=== PATIENT | male | born 1965 | race Caucasian/White ===

== ENCOUNTER 2017-12-19 16:13 | Emergency (ER) | payer MEDICARE, MEDICAID ==
[~2017-12-19] VITALS: Ht 177.8 cm; Wt 136.1 kg
[~2017-12-19 16:13] MED LIST: CITRACAL ULTRAD1 TA1 PO; DAYPRO600 M1 PO; LEVOTHYROXINE0.05 MG PO; MAG-OX 400400 MG PO; METFORMIN HCL500 MG PO; MULTIVITAMIN1 SGL PO; NEOMYCIN500 MG PO; OYSTER CAL 500500 MG PO; POTASSIUM20 MEQ PO; PROPRANOLOL10 MG PO; ROBAXIN750 MG PO; THIAMINE HCL100 MG PO; VICODIN 500 MG-1 TAB PO; VITAMIN E100 I1 PO
[2017-12-19 16:37] LABS: BASO # 0.1 10*3/uL (0.0-0.1); BASO % 0.8 % (0.0-1.0); EOS # 0.2 10*3/uL (0.0-0.4); EOS % 2.4 % (1.0-4.0); HEMATOCRIT 40.6 % (42.0-52.0); LYMPH % 31.9 % (27.0-41.0); MEAN CELL VOLUME 92.9 fl (80.0-94.0); MEAN CORPUSCULAR HGB CONC 34.5 g/dl (33.0-37.0); MEAN PLATELET VOLUME 12.9 fl (9.6-12.3); MONO # 0.6 10*3/uL (0.1-1.0); MONO % 9.3 % (3.0-9.0); NEUT # 3.4 10*3/uL (2.3-7.9); NEUT % 54.6 % (47.0-73.0); PLATELET COUNT AUTOMATED 236 10*3/uL (130-400); RED BLOOD COUNT 4.37 10*6/uL (4.50-5.90); RED CELL DISTRI WIDTH 12.4 % (0-14.5); WHITE BLOOD COUNT 6.3 10*3/uL (4.8-10.8)
[2017-12-19] MEDS ORDERED: KEFLEX500 M1 PO (17:04)
[2017-12-19] MEDS ORDERED: CHLORZOXAZONE500 M2 PO (17:04)
[2017-12-19] MEDS ORDERED: NAPROSYN500 MG PO (17:04)
[2017-12-19 17:14] LABS: ACT PARTIAL THROMBO TIME 21.8 SECONDS (20.8-31.5); INTERNATIONAL NORM RATIO 1.1 (2.0-3.5)
[2017-12-19 17:18] LABS: ALBUMIN 3.6 gm/dl (3.1-4.5); ALKALINE PHOSPHATASE 103 U/L (45-117); BUN 18 mg/dl (7-24); CHLORIDE 109 mmol/L (98-107); CREATININE 0.86 mg/dL (0.70-1.30); POTASSIUM 4.1 mmol/L (3.5-5.1); SGOT/AST 53 IU/L (3-35); SGPT/ALT 47 U/L (12-78); SODIUM 144 mmol/L (136-145); TOTAL PROTEIN 6.9 gm/dL (6.4-8.2)
[2017-12-19 17:25] LABS: ETHYL ALCOHOL < 3.0 mg/dl (<3)
== END 2017-12-19 18:16 | disposition home or self-care (01) ==
LOC: ED 16:13
PROVIDERS: Nurse Practitioner Family
DX: S22.32XA Fracture of one rib, left side, initial encounter for closed fracture (principal); S11.91XA Laceration without foreign body of unspecified part of neck, initial encounter; T14.8XXA Other injury of unspecified body region, initial encounter; Z79.899 Other long term (current) drug therapy; V86.59XA Driver of other special all-terrain or other off-road motor vehicle injured in nontraffic accident, initial encounter; Y93.I9 Activity, other involving external motion; Y92.828 Other wilderness area as the place of occurrence of the external cause; Y99.8 Other external cause status

== ENCOUNTER 2020-02-24 10:06 | Inpatient (IN) | payer OTHER ==
[~2020-02-24] VITALS: Ht 185.4 cm; Wt 127.6 kg
[~2020-02-24 10:06] MED LIST changes: +CHLORZOXAZONE500 M2 PO; +KEFLEX500 M1 PO; +NAPROSYN500 MG PO
[2020-02-24 10:13] VITALS: BP 146/68
[2020-02-24 10:34] LABS: BASO % 0.5 % (0.0-1.0); EOS # 0.1 10*3/uL (0.0-0.4); EOS % 1.8 % (1.0-4.0); HEMATOCRIT 40.4 % (42.0-52.0); LYMPH # 0.8 10*3/uL (1.3-4.4); LYMPH % 17.9 % (27.0-41.0); MEAN CELL VOLUME 90.2 fl (80.0-94.0); MEAN CORPUSCULAR HGB 31.3 pg (27.0-31.0); MEAN CORPUSCULAR HGB CONC 34.7 g/dl (33.0-37.0); MEAN PLATELET VOLUME 12.2 fl (9.6-12.3); MONO # 0.5 10*3/uL (0.1-1.0); MONO % 11.6 % (3.0-9.0); PLATELET COUNT AUTOMATED 108 10*3/uL (130-400); RED BLOOD COUNT 4.48 10*6/uL (4.50-5.90); RED CELL DISTRI WIDTH 12.3 % (0-14.5); WHITE BLOOD COUNT 4.4 10*3/uL (4.8-10.8)
[2020-02-24 10:42] LABS: ACT PARTIAL THROMBO TIME 26.7 SECONDS (20.0-32.1); INTERNATIONAL NORM RATIO 1.1 (2.0-3.5)
[2020-02-24 10:48] LABS: ALBUMIN 3.3 gm/dl (3.1-4.5); ALKALINE PHOSPHATASE 191 U/L (45-117); BUN 12 mg/dl (7-24); CHLORIDE 107 mmol/L (98-107); LIPASE 193 U/L (73-393); POTASSIUM 4.1 mmol/L (3.5-5.1); SGOT/AST 72 IU/L (3-35); SGPT/ALT 64 U/L (12-78); SODIUM 139 mmol/L (136-145); TOTAL PROTEIN 7.6 gm/dL (6.4-8.2)
[2020-02-24 10:55] LABS: TROPONIN I < 0.015 ng/ml (<0.045)
[2020-02-24 11:37] LABS: BILIRUBIN NEGATIVE; CLARITY CLEAR (CLEAR); COLOR YELLOW (YELLOW); GLUCOSE TRACE; KETONE NEGATIVE
[2020-02-24 11:38] LABS: BACTERIA TRACE; BLOOD NEGATIVE (NEGATIVE); LEUKO ESTERASE NEGATIVE (NEGATIVE); MUCOUS 2+; NITRITE NEGATIVE (NEGATIVE); SPECIFIC GRAVITY 1.025 (1.001-1.030); WBC 0-2 wbc/hpf (0-5)
[2020-02-24 14:44] VITALS: BP 132/62
[2020-02-24 14:49] VITALS: BP 123/86
[2020-02-24 15:21] VITALS: BP 132/62
[2020-02-24 16:00] VITALS: BP 130/72
[2020-02-24 20:00] VITALS: BP 122/48
[2020-02-25] VITALS: BP 123/53
[2020-02-25 06:36] LABS: BASO % 1.1 % (0.0-1.0); EOS # 0.1 10*3/uL (0.0-0.4); EOS % 2.4 % (1.0-4.0); HEMATOCRIT 40.8 % (42.0-52.0); LYMPH # 0.9 10*3/uL (1.3-4.4); LYMPH % 22.7 % (27.0-41.0); MEAN CELL VOLUME 91.3 fl (80.0-94.0); MEAN CORPUSCULAR HGB 30.6 pg (27.0-31.0); MEAN CORPUSCULAR HGB CONC 33.6 g/dl (33.0-37.0); MEAN PLATELET VOLUME 12.7 fl (9.6-12.3); MONO # 0.4 10*3/uL (0.1-1.0); NEUT # 2.3 10*3/uL (2.3-7.9); NEUT % 62.5 % (47.0-73.0); PLATELET COUNT AUTOMATED 105 10*3/uL (130-400); RED BLOOD COUNT 4.47 10*6/uL (4.50-5.90); RED CELL DISTRI WIDTH 12.5 % (0-14.5); WHITE BLOOD COUNT 3.7 10*3/uL (4.8-10.8)
[2020-02-25 07:09] LABS: ALKALINE PHOSPHATASE 170 U/L (45-117); BUN 13 mg/dl (7-24); CHLORIDE 105 mmol/L (98-107); CHOLESTEROL 134 mg/dL (<200); CREATININE 0.61 mg/dL (0.70-1.30); FREE T4 0.81 ng/dl (0.76-1.46); HDL CHOLESTEROL 47 mg/dl (40-60); POTASSIUM 3.6 mmol/L (3.5-5.1); SGOT/AST 53 IU/L (3-35); SGPT/ALT 48 U/L (12-78); SODIUM 138 mmol/L (136-145); TOTAL PROTEIN 6.9 gm/dL (6.4-8.2)
[2020-02-25 07:14] LABS: LDL CHOLESTEROL 69 mg/dL (9-159); TRIGLYCERIDES 90 mg/dl (<150); VLDL CHOLESTEROL 18 mg/dL (6-40)
[2020-02-25 08:00] VITALS: BP 120/46
== END 2020-02-25 10:25 | disposition home or self-care (01) | DRG 433 ==
LOC: ED 10:06 → EDHOLD 14:18 → 5E 14:18
PROVIDERS: Emergency Medicine; Internal Medicine; ADMIT Student in an Organized Health Care Education/Training Program; ATTEND Student in an Organized Health Care Education/Training Program
DX: K70.30 Alcoholic cirrhosis of liver without ascites (principal); E44.1 Mild protein-calorie malnutrition; D69.6 Thrombocytopenia, unspecified; R16.0 Hepatomegaly, not elsewhere classified; E66.9 Obesity, unspecified; R16.1 Splenomegaly, not elsewhere classified; Z68.37 Body mass index [BMI] 37.0-37.9, adult; Z90.49 Acquired absence of other specified parts of digestive tract; Z80.0 Family history of malignant neoplasm of digestive organs; Z79.899 Other long term (current) drug therapy

== ENCOUNTER → 2020-04-15 | Outpatient (CLI) | payer OTHER ==
[~2020-04-15] MED LIST changes: +ONDANSETRON HYDR4 MG PO; +OXYCODONE HCL5 MG PO; +PENICILLIN VK500 MG PO; +XARE20MG PO
[2020-04-15 12:29] LABS: INTERNATIONAL NORM RATIO 1.1 (2.0-3.5)
== END | disposition home or self-care (01) ==
LOC: LAB 11:54
PROVIDERS: ATTEND Surgery
DX: K70.30 Alcoholic cirrhosis of liver without ascites (principal); R16.0 Hepatomegaly, not elsewhere classified; R91.8 Other nonspecific abnormal finding of lung field

== ENCOUNTER → 2020-05-07 | Outpatient (CLI) | payer OTHER | END | disposition home or self-care (01) | LOC: COVID19 14:55 | PROVIDERS: ATTEND Internal Medicine | DX: Z20.828 Contact with and (suspected) exposure to other viral communicable diseases (principal) ==

== ENCOUNTER → 2020-05-15 | Outpatient (CLI) | payer OTHER ==
[~2020-05-15] MED LIST changes: +GLUCOPHAGE500 M1 PO; +HUMALOG100 UNIT/1 SC; +LANTUS SOL100 UNIT/1 SC
[2020-05-15 18:34] LABS: ALBUMIN 2.9 gm/dl (3.1-4.5); ALKALINE PHOSPHATASE 191 U/L (45-117); BUN 15 mg/dl (7-24); CHLORIDE 105 mmol/L (98-107); CREATININE 0.67 mg/dL (0.70-1.30); POTASSIUM 3.6 mmol/L (3.5-5.1); SGOT/AST 101 IU/L (3-35); SGPT/ALT 131 U/L (12-78); SODIUM 141 mmol/L (136-145)
[2020-05-15 18:40] LABS: HEMATOCRIT 34.2 % (42.0-52.0); MEAN CELL VOLUME 92.9 fl (80.0-94.0); MEAN CORPUSCULAR HGB CONC 33.3 g/dl (33.0-37.0); MEAN PLATELET VOLUME 12.8 fl (9.6-12.3); PLATELET COUNT AUTOMATED 60 10*3/uL (130-400); RED BLOOD COUNT 3.68 10*6/uL (4.50-5.90); RED CELL DISTRI WIDTH 12.8 % (0-14.5)
[2020-05-15 19:47] LABS: TOTAL CELLS COUNTED 100 #CELLS
[2020-05-15 19:48] LABS: TARGET CELLS FEW
[2020-05-15 19:49] LABS: OVALOCYTES FEW; PLATELET SUFFICIENCY LOW (NORMAL)
[2020-05-15 22:07] LABS: WHITE BLOOD COUNT 1.5 10*3/uL (4.8-10.8)
== END | disposition home or self-care (01) ==
LOC: LAB 17:23
PROVIDERS: Internal Medicine Hematology & Oncology; ATTEND Internal Medicine Gastroenterology
DX: C24.9 Malignant neoplasm of biliary tract, unspecified (principal); R16.0 Hepatomegaly, not elsewhere classified

== ENCOUNTER → 2020-05-24 | Outpatient (CLI) | payer OTHER ==
[2020-05-24 11:05] LABS: BASO % 0.9 % (0.0-1.0); EOS # 0.1 10*3/uL (0.0-0.4); EOS % 3.2 % (1.0-4.0); HEMATOCRIT 36.8 % (42.0-52.0); LYMPH # 0.5 10*3/uL (1.3-4.4); LYMPH % 20.3 % (27.0-41.0); MEAN CELL VOLUME 93.2 fl (80.0-94.0); MEAN CORPUSCULAR HGB 30.6 pg (27.0-31.0); MEAN CORPUSCULAR HGB CONC 32.9 g/dl (33.0-37.0); MEAN PLATELET VOLUME 12.5 fl (9.6-12.3); MONO # 0.3 10*3/uL (0.1-1.0); MONO % 15.3 % (3.0-9.0); NEUT # 1.3 10*3/uL (2.3-7.9); NEUT % 60.3 % (47.0-73.0); PLATELET COUNT AUTOMATED 130 10*3/uL (130-400); RED BLOOD COUNT 3.95 10*6/uL (4.50-5.90); RED CELL DISTRI WIDTH 13.1 % (0-14.5); WHITE BLOOD COUNT 2.2 10*3/uL (4.8-10.8)
== END | disposition home or self-care (01) ==
LOC: LAB 10:49
PROVIDERS: ATTEND Nurse Practitioner Family
DX: Z51.11 Encounter for antineoplastic chemotherapy (principal); C24.9 Malignant neoplasm of biliary tract, unspecified; R11.2 Nausea with vomiting, unspecified; R16.0 Hepatomegaly, not elsewhere classified

== ENCOUNTER 2020-06-27 17:28 | Observation (INO) | payer OTHER ==
[~2020-06-27] VITALS: Ht 185.4 cm; Wt 120.4 kg
[~2020-06-27 17:28] MED LIST changes: -GLUCOPHAGE500 M1 PO; -HUMALOG100 UNIT/1 SC; -LANTUS SOL100 UNIT/1 SC; -ONDANSETRON HYDR4 MG PO; -OXYCODONE HCL5 MG PO; -PENICILLIN VK500 MG PO; -XARE20MG PO
[2020-06-27 17:47] VITALS: BP 199/82
[2020-06-27 18:49] LABS: NUCLEATED RED BLOOD CELL 0.4 % (0.0-0.0)
[2020-06-27 19:01] LABS: INTERNATIONAL NORM RATIO 1.5 (2.0-3.5)
[2020-06-27 19:04] LABS: ALBUMIN 2.7 gm/dl (3.1-4.5); ALKALINE PHOSPHATASE 257 U/L (45-117); BUN 21 mg/dl (7-24); CHLORIDE 96 mmol/L (98-107); CREATININE 0.86 mg/dL (0.70-1.30); LIPASE 279 U/L (73-393); POTASSIUM 4.3 mmol/L (3.5-5.1); SGOT/AST 60 IU/L (3-35); SGPT/ALT 107 U/L (12-78); SODIUM 131 mmol/L (136-145)
[2020-06-27 19:30] LABS: BASO % 0.5 % (0.0-1.0); EOS # 0.1 10*3/uL (0.0-0.4); EOS % 0.9 % (1.0-4.0); HEMATOCRIT 39.1 % (42.0-52.0); LYMPH # 0.5 10*3/uL (1.3-4.4); LYMPH % 9.7 % (27.0-41.0); MEAN CELL VOLUME 88.5 fl (80.0-94.0); MEAN CORPUSCULAR HGB CONC 32.7 g/dl (33.0-37.0); MEAN PLATELET VOLUME 12.5 fl (9.6-12.3); MONO # 0.4 10*3/uL (0.1-1.0); MONO % 7.9 % (3.0-9.0); NEUT # 4.2 10*3/uL (2.3-7.9); NEUT % 74.4 % (47.0-73.0); RED BLOOD COUNT 4.42 10*6/uL (4.50-5.90); RED CELL DISTRI WIDTH 14.2 % (0-14.5); WHITE BLOOD COUNT 5.6 10*3/uL (4.8-10.8)
[2020-06-27 19:31] LABS: PLATELET COUNT AUTOMATED 96 10*3/uL (130-400)
[2020-06-27 19:48] LABS: BASOPHILS 1 % (0-1); PLATELET SUFFICIENCY LOW (NORMAL); TOTAL CELLS COUNTED 100 #CELLS
[2020-06-27 19:49] LABS: BURR CELLS FEW
[2020-06-27 19:57] VITALS: BP 184/84
[2020-06-27] MEDS ORDERED: OXYCODONE HCL5 MG PO (20:34)
[2020-06-27] MEDS ORDERED: XARE20MG PO (20:34)
[2020-06-27] MEDS ORDERED: ONDANSETRON HYDR4 MG PO (20:34)
[2020-06-27] MEDS ORDERED: PENICILLIN VK500 MG PO (20:35)
[2020-06-27 23:23] VITALS: BP 157/66
[2020-06-28 00:10] VITALS: BP 185/72
[2020-06-28 07:12] LABS: HEMATOCRIT 37.5 % (42.0-52.0); MEAN CELL VOLUME 86.8 fl (80.0-94.0); MEAN CORPUSCULAR HGB 28.9 pg (27.0-31.0); MEAN CORPUSCULAR HGB CONC 33.3 g/dl (33.0-37.0); NUCLEATED RED BLOOD CELL 0.4 % (0.0-0.0); PLATELET COUNT AUTOMATED 79 10*3/uL (130-400); RED BLOOD COUNT 4.32 10*6/uL (4.50-5.90); RED CELL DISTRI WIDTH 14.3 % (0-14.5); WHITE BLOOD COUNT 4.8 10*3/uL (4.8-10.8)
[2020-06-28 07:26] LABS: ALBUMIN 2.7 gm/dl (3.1-4.5); ALKALINE PHOSPHATASE 224 U/L (45-117); BUN 17 mg/dl (7-24); CHLORIDE 97 mmol/L (98-107); CREATININE 0.62 mg/dL (0.70-1.30); POTASSIUM 3.6 mmol/L (3.5-5.1); SGOT/AST 61 IU/L (3-35); SGPT/ALT 99 U/L (12-78); SODIUM 132 mmol/L (136-145); TOTAL PROTEIN 6.5 gm/dL (6.4-8.2)
[2020-06-28 07:40] LABS: PLATELET SUFFICIENCY LOW (NORMAL); TOTAL CELLS COUNTED 100 #CELLS
[2020-06-28 08:00] VITALS: BP 176/77
[2020-06-28 08:54] LABS: VITAMIN D, 25-HYDROXY 33.5 ng/mL (30-100)
[2020-06-28 12:00] VITALS: BP 167/65
[2020-06-28 16:00] VITALS: BP 179/81
[2020-06-28 20:00] VITALS: BP 190/82
[2020-06-29] VITALS: BP 152/80
[2020-06-29 06:42] LABS: BUN 17 mg/dl (7-24); CHLORIDE 102 mmol/L (98-107); POTASSIUM 4.2 mmol/L (3.5-5.1); SODIUM 133 mmol/L (136-145)
[2020-06-29 07:36] LABS: HEMATOCRIT 36.4 % (42.0-52.0); MEAN CELL VOLUME 84.1 fl (80.0-94.0); MEAN CORPUSCULAR HGB 29.3 pg (27.0-31.0); MEAN CORPUSCULAR HGB CONC 34.9 g/dl (33.0-37.0); NUCLEATED RED BLOOD CELL 0.4 % (0.0-0.0); RED BLOOD COUNT 4.33 10*6/uL (4.50-5.90); RED CELL DISTRI WIDTH 14.4 % (0-14.5); WHITE BLOOD COUNT 4.9 10*3/uL (4.8-10.8)
[2020-06-29 07:42] LABS: PLATELET COUNT AUTOMATED 47 10*3/uL (130-400)
[2020-06-29 08:00] VITALS: BP 173/81
[2020-06-29 08:11] LABS: ATYPICAL LYMPHS 1 % (0-0); TOTAL CELLS COUNTED 100 #CELLS
[2020-06-29 08:12] LABS: PLATELET SUFFICIENCY LOW (NORMAL); TARGET CELLS FEW
[2020-06-29] MEDS ORDERED: HUMALOG100 UNIT/1 SC (10:13)
[2020-06-29] MEDS ORDERED: LANTUS SOL100 UNIT/1 SC (10:13)
[2020-06-29] MEDS ORDERED: GLUCOPHAGE500 M1 PO (10:13)
== END 2020-06-29 11:35 | disposition home or self-care (01) ==
LOC: ED 17:28 → EDHOLD 20:22 → 5E 22:15
PROVIDERS: Emergency Medicine; Hospitalist; Internal Medicine; ADMIT Internal Medicine; ATTEND Internal Medicine
DX: R19.7 Diarrhea, unspecified (principal); K70.30 Alcoholic cirrhosis of liver without ascites; E86.0 Dehydration; C22.0 Liver cell carcinoma; E11.65 Type 2 diabetes mellitus with hyperglycemia; E87.2 Acidosis; E80.6 Other disorders of bilirubin metabolism; E66.9 Obesity, unspecified; R79.82 Elevated C-reactive protein (CRP); D69.6 Thrombocytopenia, unspecified; R16.1 Splenomegaly, not elsewhere classified; R74.01 Elevation of levels of liver transaminase levels; Z98.890 Other specified postprocedural states; Z86.718 Personal history of other venous thrombosis and embolism; Z90.49 Acquired absence of other specified parts of digestive tract; Z20.828 Contact with and (suspected) exposure to other viral communicable diseases; Z79.899 Other long term (current) drug therapy